=== PATIENT | female | born 1980 | race Caucasian/White ===

== ENCOUNTER → 2023-12-05 | Day surgery (SDC) | payer BC ==
[2023-12-01 15:52] VITALS: BMI 24.0
[~2023-12-05] MED LIST: Bacitracin Zinc Ointment 30 gm TUBE ONE; Bupivacaine PF 0.5% 30 ML VIAL ONE; CEFAZOLIN 2 GM VIAL ONE; Dexamethasone 20 MG/5 ML VIAL ONE; Ketorolac Tromethamine 30 MG (1 mL) VIAL ONE; Lidocaine 1% PF 5 ML VIAL ONE; Ondansetron PF 4 MG/2 ML Vial ONE; PROPOFOL 20 ML ONE; Promethazine HCl 25 MG/ML VIAL ONE; Sevoflurane 250 ML INH ANEST BOTTLE ONE; Sodium Chloride 0.9% 100 ML ONE; fentaNYL 50 mcg/mL 1 mL Vial ONE; fentaNYL PF 100 MCG/2 ML SYRINGE ONE
== END ==
LOC: SDC 11:08
PROVIDERS: ATTEND Orthopaedic Surgery Hand Surgery
PROC: 0LN80ZZ Release Left Hand Tendon, Open Approach (ICD-10-PCS; principal; 2023-12-05)
PROC: 0PSV04Z Reposition Left Finger Phalanx with Internal Fixation Device, Open Approach (ICD-10-PCS; principal; 2023-12-05)
DX: S62.617A Displaced fracture of proximal phalanx of left little finger, initial encounter for closed fracture (principal); Z79.899 Other long term (current) drug therapy; W21.06XA Struck by volleyball, initial encounter
CPT/HCPCS: A6223; C1713; J0665; J1100; J1885; J2405; J2550; J2704; J3010; J3490